=== PATIENT | female | born 1970 | race Two or more races ===

== ENCOUNTER 2020-12-17 10:59 | Outpatient (CLI) | payer OTHER | END 2020-12-17 11:18 | disposition home or self-care (01) | LOC: RAD 10:59 → SONOGRAMA 10:59 → RAD 11:18 | DX: R07.89 Other chest pain (principal); Q61.00 Congenital renal cyst, unspecified; R31.29 Other microscopic hematuria ==

== ENCOUNTER 2022-01-06 10:24 | Outpatient (CLI) | payer OTHER | END 2022-01-06 10:36 | disposition home or self-care (01) | LOC: MAMO-SONO 10:24 | PROVIDERS: ATTEND Obstetrics & Gynecology | DX: N60.11 Diffuse cystic mastopathy of right breast (principal) ==